=== PATIENT | female | born 1945 | race Caucasian/White ===

== ENCOUNTER → 2018-04-16 | Outpatient (CLI) | payer OTHER ==
[~2018-04-16] VITALS: Ht 162.6 cm; Wt 77.1 kg
[~2018-04-16] MED LIST: CIPRO500 M1 PO; FLAGYL500 MG PO; LISINOPRIL10 MG PO; NORVASC5 MG PO; OMEPRAZOLE 20 M20 M1 PO; TRAMADOL 50 MG50 MG PO; ZOFRAN ODT4 MG PO
--- NOTE | ~2018-04-16 | PATH ---
[facility] [address] [place] [address] PATHOLOGY RPT PROCEDURE Name: GWYN VILLEGAS Room #: REG KEHINDE Finley#: [id number] Admission: 04/16/18 Date of : 43 Discharge: Report #: [id number] Path Case #: [id number] [facility] Accession Number: [id number] . 01 Material submitted: . PART A: ASCENDING COLON POLYP PART B: SIGMOID POLYP . 01 Clinical history: . Pre-OP DX: HX of diverticulitis Post-OP DX: Diverticulosis, polyps . 02 Diagnosis: A. Colonic mucosa "ascending colon polyp biopsy": - Fragments of tubular adenoma. - There is no evidence of high-grade dysplasia or malignancy. . B. Colonic mucosa "sigmoid polyp biopsy": - Fragments of hyperplastic polyp. - There is no evidence of adenomatous change, high-grade dysplasia or malignancy. (SHA:frantz; 04/17/2018) QMS/04/17/2018 . 02 Electronically signed: . James Castillo MD, Pathologist NPI- [id number] . 01 Gross description: . A. Received in formalin labeled "Gwyn Villegas, ascending colon polyp," are 4 segments of barajas soft tissue measuring 2.0 x 1.2 x 0.2 cm in aggregate dimensions and ranging from 0.6 to 0.8 cm in maximum dimension. The specimen is submitted entirely in cassette A1. . B. Received in formalin labeled "Gwyn Villegas, sigmoid polyp," are 2 segments of barajas soft tissue measuring 0.5 x 0.2 x 0.2 cm in aggregate dimensions and ranging from 0.2 to 0.3 cm in maximum dimension. The specimen is submitted entirely in cassette B1. (TSD; 04/16/2018) TOB/TOB . 02 Pathologist provided ICD-10: D12.2, K63.5 . 02 CPT . 163697, 510138 Specimen Comment: A courtesy copy of this [place] [address] PATHOLOGY RPT PROCEDURE Name: GWYN VILLEGAS SIOBHAN Room #: REG [facility] Shine.#: [id number] Admission: 04/16/18 Date of : 43 Discharge: Report #: [id number] Path Case #: [id number] Specimen Comment: [phone], , . Specimen Comment: Report sent to ,DR ORO / DR SALAS Specimen Comment: A duplicate report has been generated due to demographic updates. Performed at: [address], [place] [id number] MD Ta Wright MD Phone: [phone] Performed at: [address] [id number] MD Shayla Olivas MD Phone: [phone]
== END | disposition home or self-care (01) ==
LOC: GI 07:00
DX: Z12.11 Encounter for screening for malignant neoplasm of colon (principal); D12.2 Benign neoplasm of ascending colon; K63.5 Polyp of colon; K57.30 Diverticulosis of large intestine without perforation or abscess without bleeding; K64.8 Other hemorrhoids; G47.30 Sleep apnea, unspecified; K21.9 Gastro-esophageal reflux disease without esophagitis; I10 Essential (primary) hypertension; Z86.010 Personal history of colon polyps; Z98.0 Intestinal bypass and anastomosis status; Z98.890 Other specified postprocedural states; Z90.49 Acquired absence of other specified parts of digestive tract; Z88.8 Allergy status to other drugs, medicaments and biological substances; Z79.899 Other long term (current) drug therapy; Z91.041 Radiographic dye allergy status
CPT/HCPCS: 62110; 62900

== ENCOUNTER → 2020-02-07 | Outpatient (CLI) | payer OTHER | LOC: RAD 14:05 | PROVIDERS: ATTEND Nurse Practitioner | DX: M25.512 Pain in left shoulder (principal) ==

== ENCOUNTER → 2020-02-19 | Outpatient (CLI) | payer OTHER | LOC: NUC 11:00 | PROVIDERS: ATTEND Nurse Practitioner | DX: M85.88 Other specified disorders of bone density and structure, other site (principal); Z78.0 Asymptomatic menopausal state ==